=== PATIENT | female | born 1980 | race Asian ===

== ENCOUNTER 2020-02-16 20:52 | Emergency (ER) | payer OTHER ==
[~2020-02-16] VITALS: Ht 162.6 cm; Wt 63.5 kg
[2020-02-16 20:55] VITALS: BP_SYST 143
--- NOTE | 2020-02-16 20:55 | NUR ---
Patient to ER bed 1 to gown for evaluation. Side rails up, place patient on pvc monitor and pulse ox.
--- NOTE | 2020-02-16 20:56 | NUR ---
Patient came to ER with friend. C/O overdose x today. Patient states " I took fentanyl 30 mg 3 -5 tablets , I am not sure, I don't know why I took it, I felt depress lately, I got this medication from the street , it was not prescription medication, I think it was fake oxycodone or fentanyl, I don't know" A/O,X4, denies pain, dizziness, weakness, vss.
--- NOTE | 2020-02-16 21:00 | NUR ---
ER Dr. Lafleur at bedside examining patient.
--- NOTE | 2020-02-16 21:05 | NUR ---
Dr. Lafleur called poison control.
[2020-02-16] MEDS ORDERED: NALOXONE HCL 0.4 MG/ML AMP (NARCAN) IVP ONE (21:15)
--- NOTE | 2020-02-16 21:15 | NUR ---
In and out cath, collected and sent to lab.
[2020-02-16 21:16] LABS: BASOPHILS % (AUTO) 0.5 % (0.0-2.0); EOSINOPHILS # (AUTO) 0.1 K/uL (0.0-0.4); EOSINOPHILS % (AUTO) 1.4 % (0.0-4.0); HEMATOCRIT 47.2 % (36-48); HEMOGLOBIN 16.3 g/dL (12.0-16.0); LYMPHOCYTES # (AUTO) 2.2 K/uL (1.0-5.5); LYMPHOCYTES % (AUTO) 23.9 % (20.5-51.5); MEAN CORPUSCULAR HEMOGLOBIN 31 pg (27-31); MEAN CORPUSCULAR HGB CONC 35 % (32-36); MEAN CORPUSCULAR VOLUME 89 fL (79.0-98.0); MONOCYTES # (AUTO) 0.5 K/uL (0.0-1.0); MONOCYTES % (AUTO) 5.3 % (1.7-9.3); NEUTROPHILS # (AUTO) 6.3 K/uL (1.8-7.7); NEUTROPHILS % (AUTO) 68.9 % (40.0-70.0); PLATELET COUNT (AUTO) 276 K/uL (130-430); RED BLOOD CELL COUNT(AUTO) 5.29 MIL/uL (4.2-6.2); WHITE BLOOD COUNT (AUTO) 9.2 K/uL (4.8-10.8)
--- NOTE | 2020-02-16 21:25 | NUR ---
Blood for labwork drawn from flow worker. Patient tolerated well.
[2020-02-16 21:35] LABS: BILIRUBIN,URINE NEGATIVE (NEGATIVE); BLOOD, URINE NEGATIVE (NEGATIVE); CLARITY/URINE CLEAR (CLEAR); COLOR,URINE YELLOW (YELLOW); GLUCOSE,URINE NEGATIVE (NEGATIVE); KETONES,URINE NEGATIVE (NEGATIVE); LEUKOCYTE ESTERASE ,URINE NEGATIVE (NEGATIVE); NITRITE, URINE NEGATIVE (NEGATIVE); PROTEIN URINE NEGATIVE (NEGATIVE); UROBILINOGEN,URINE 0.2 (0.2-1.0)
[2020-02-16 21:38] LABS: ANION GAP 11 (5-15); CALCIUM 8.6 mg/dL (8.4-11.0); CHLORIDE 107 mmol/L (98-107); GLUCOSE 116 mg/dL (70-99); POTASSIUM 3.4 mmol/L (3.5-5.1); SODIUM SERUM 141 mmol/L (136-145)
[2020-02-16 21:39] LABS: ALANINE AMINOTRANSFERASE 27 U/L (12-78); ALBUMIN 3.8 g/dL (3.4-4.8); ASPARTATE AMINOTRANSFERASE 21 U/L (10-37); GFR AFRICAN AMERICAN 104 mL/min (>90); TOTAL BILIRUBIN 0.3 mg/dL (0.0-1.0); UREA NITROGEN, BLOOD 13 mg/dL (8-21)
[2020-02-16 21:40] LABS: ACETAMINOPHEN < 1 ug/mL (1-30); ALCOHOL, BLOOD < 3 mg/dL (<10)
[2020-02-16 21:46] LABS: BARBITURATE, URINE NEGATIVE (NEG <=200); BENZODIAZEPINE, URINE NEGATIVE (NEG <=150); CANNABINOID, URINE NEGATIVE (NEG <=50); COCAINE, URINE NEGATIVE (NEG <=150); METHAMPHETAMINES SCREEN,URINE NEGATIVE (NEG <=500); OPIATE, URINE NEGATIVE (NEG <=100); PHENCYCLIDINE SCREEN,URINE NEGATIVE (NEG <=25); UR TRICYCLIC ANTIDEPRESSANTS NEGATIVE (NEG <=300); URINE AMPHETAMINE NEGATIVE (NEG <=500); URINE METHADONE NEGATIVE (NEG <=200); URINE OXYCODONE SCREEN NEGATIVE (NEG <=100); URINE PROPOXYPHENE SCREEN NEGATIVE (NEG <=300)
--- NOTE | 2020-02-16 21:51 | NUR ---
Patient is sleeping on bed, vss.
--- NOTE | 2020-02-16 22:13 | NUR ---
Patient awake, vss.
[2020-02-16 22:14] VITALS: BP_SYST 131
--- NOTE | 2020-02-16 22:19 | NUR ---
Patient vomitting x 2 times.
--- NOTE | 2020-02-16 22:27 | NUR ---
Patient get dress, spoke with patient to stay , regarding her condition. Patient states " I can not stay any minutes, I live in [place], I need to pay and my insurance won't pay for it, I need to go now." Patient carried all her beloning , opened the door and walked out ER."
--- NOTE | 2020-02-16 22:28 | NUR ---
Asked permit to remove IV line and Patient not allowed to touch her and remove it.
--- NOTE | 2020-02-16 22:29 | NUR ---
Patient walked out ER with IV line, Patient refused treatment, talked with patient- Dr. Lafleur notified.
--- NOTE | 2020-02-16 22:32 | NUR ---
Called [employer], reported incident.
--- NOTE | 2020-02-16 22:50 | NUR ---
Called and spoke with patient's sister ([phone]) about incident and asked patient's sister try to contact patient.
--- NOTE | 2020-02-16 22:52 | NUR ---
FABRICIO amos at ER, given report and information about incident and patient.
== END 2020-02-16 22:29 | disposition left against medical advice (07) ==
LOC: SED 20:52
DX: T40.411A Poisoning by fentanyl or fentanyl analogs, accidental (unintentional), initial encounter (principal); R45.851 Suicidal ideations; F32.9 Major depressive disorder, single episode, unspecified; Y92.89 Other specified places as the place of occurrence of the external cause
CPT/HCPCS: 36415; 80053; 80307; 81003; 81025; 82140; 85025; 96374; 99283; G0480; G0481; G0482; J2310; 93005